=== PATIENT | female | born 1985 | race Caucasian/White ===

== ENCOUNTER 2020-07-03 02:34 | Outpatient (CLI) | payer OTHER, SELFPAY ==
[2020-07-03 19:16] LABS: SARS-CoV-2 RNA PCR Negative
== END 2020-07-03 02:35 | disposition home or self-care (01) ==
LOC: ANHCOVIDDT 02:35
PROVIDERS: Visit Provider Surgery Plastic and Reconstructive Surgery
DX: Z01.812 Encounter for preprocedural laboratory examination (principal); Z20.828 Contact with and (suspected) exposure to other viral communicable diseases; N64.82 Hypoplasia of breast
CPT/HCPCS: 87635; C9803; U0003

== ENCOUNTER 2020-07-06 05:53 | Day surgery (SDC) | payer OTHER, SELFPAY ==
[2020-06-25 11:04] VITALS: BMI 24.1
[2020-07-06 06:04] VITALS: BMI 25.2
[2020-07-06 06:32] VITALS: BP 100/65; PULSE 64; RESP 20; TEMP 37; O2SAT 100
--- NOTE | 2020-07-06 06:46 | WPDANESEPPF ---
Anes - Initial Pre Proc Eval Procedure: Operation Date: 07/06/20 07:30 Proposed Procedures p Bilateral Breast Augmentation Mammoplasty - Bartolo Salcedo MD Date/Time: 07/06/20 06:46 Surgeon: Bartolo Salcedo MD Pre Op Diagnosis: Micromastia Patient Data Age: 35 Gender: F Height: 5 ft 5 in Weight: 68.8 kg Last Vital Signs Temp 37.0 C 07/06/20 06:32 Pulse 64 07/06/20 06:32 Resp 20 07/06/20 06:32 BP 100/65 07/06/20 06:32 Pulse Ox 100 07/06/20 06:32 Allergies Allergy/AdvReac Type Severity Reaction Status Date / Time No Known Allergies Allergy Verified 07/06/20 06:02 Home Medications Medication Instructions Recorded Confirmed Type cabergoline 0.5 mg tablet 0.5 mg PO 2XW 05/24/20 06/25/20 History norgestimate-ethinyl estradiol 1 tablet PO DAILY 05/24/20 06/25/20 History 0.18 mg/0.215mg/0.25mg-35 mcg(28)tablet docusate sodium 100 mg capsule 100 mg PO DAILY #14 cap 06/18/20 06/25/20 Rx ondansetron HCl 4 mg tablet 4 mg PO Q8H #28 tablet 06/18/20 06/25/20 Rx carisoprodol 350 mg tablet 350 mg PO TID PRN #21 tablet 06/19/20 06/25/20 Rx oxycodone-acetaminophen 5 mg-325 1 tablet PO Q6H PRN #15 tablet 06/19/20 06/25/20 Rx mg tablet Patient hx anesthesia problems: none Family hx anesthesia problems: none PMFSH Surgical History Surgical History History of cholecystectomy Family History Family History Grandparent Carcinoma of colon Other Cerebrovascular accident Social History Social History Smoking status: Never smoker Second hand tobacco smoke exposure: No Alcohol intake: current Substance use: never Living arrangements: with family Gender identity (if verbalized by the patient): Female Spiritual care concerns: No Anes - Eval Final PreProcedure Day of Procedure 07/06/20 06:46 Patient weight: normal Heart: regular rate and rhythm Lungs: clear to auscultation Airway: Mallampati scale Neurological: alert and oriented Last oral intake: >/= 8 hours ASA classification: II Emergent: no Anesthetic plan: proceed Anesthesia type and monitoring: general LMA and standard monitoring Informed Consent: The patient's anesthetic plan and its attendant risks and benefits were discussed with the patient/family/POA. Questions were solicited and answers provided to the satisfaction of the patient/family/POA.
[2020-07-06] MEDS: LACTATED RINGERS 1,000 ML 30 ML IV CONT ×2 (06:57→08:10)
[2020-07-06] MEDS: SCOPOLAMINE 1.5 MG PATCH TRANSDERM (06:58)
--- NOTE | 2020-07-06 07:04 | WPDHPUPDATE1 ---
History and Physical Update Update Date/Time: 07/06/20 07:04 History and Physical has been reviewed, including an updated exam of the patient. There are NO changes in the patient's condition. Risks, benefits, and alternatives have been discussed and questions answered. Patient agrees to proceed with procedure.
--- NOTE | 2020-07-06 07:05 | PM.PROC ---
Procedure Note - Detailed Date of procedure: 07/06/20 Pre-op diagnosis: Micromastia Post-op diagnosis: same Procedure performed: Bilateral augmentation mammaplasty Description of procedure: She is here today for bilateral breast augmentation. Previously and again today the risks, benefits, alternatives were discussed in extensive detail. I wanted her to be very realistic about the risks involved as well as expectations. We discussed aftercare and what to monitor for. Made sure answered all of her questions to her satisfaction today and consent was obtained. Marked in the preoperative holding area with their verification. The patient was taken to the operating room placed supine on the operating table. Anesthesia was provided by anesthesiology. A surgical time-out was taken. We cleansed the skin and 1% lidocaine and 0.25% Marcaine with epinephrine was used anesthetize as a field block. She was prepped and draped in a standard sterile fashion. Tegaderm nipple Higuera were placed. A 15 blade used to make an incision along the inframammary fold. Dissection was continued at 45 degree angle until the chest wall as identified. I elevated superficial to pec in a dual plane 3 fashion. I incised the pectoralis major along its inferior border and completely released the inferior border leaving the medial border intact. I created a subpectoral pocket in the appropriate dimensions based on our preoperative planning for the implant. I then copiously irrigated with saline solution and verified a strict hemostasis. Next the use a triple antibiotic and Betadine containing solution to irrigate the pocket. I washed my gloves with the triple antibiotic and Betadine solution. We washed the implant immediately upon opening it with this solution and only opened it when we needed it. I used implant funnel and no-touch technique. The implant was introduced into the pocket using the funnel. Having verified positioning of the implant this was closed using 2-0 Vicryl followed by 3-0 Monocryl in a running subcuticular 4-0 Monocryl followed by tissue glue. Fluffs, Brannon wrap, and surgical bra were placed. Patient was awoke and taken to PACU without difficulty. All instrument sponge counts were correct at the end of the case. Anesthesia: GLMA Surgeon: Bartolo Salcedo MD Estimated blood loss (mL): 10 Drains: No Packing: No Pathology: none sent Complications: No immediate complications Condition: stable Disposition: PACU Findings: Bilateral Natlawrencee Insira SoftTouch 485cc Dual Plane 3 Right REF SSF-485 SN [id number] Left REF SSF-485 SN [id number]
[2020-07-06] MEDS: ceFAZolin SODIUM 2 GM/20 ML SW SYRINGE IV PUSH (07:09)
[2020-07-06] MEDS: LIDO 1%/EPINEPHRINE 1:100,000 20 ML VIAL INFILTRATE (07:32)
[2020-07-06 08:11] VITALS: BP 108/69; PULSE 111; RESP 18; TEMP 36.5; O2SAT 100
[2020-07-06 08:25] VITALS: BP 112/75; PULSE 100; RESP 22; O2SAT 100
[2020-07-06 08:40] VITALS: BP 111/75; PULSE 94; RESP 20; O2SAT 99
[2020-07-06] MEDS: MEPERIDINE HCL INJ (*CRX) 100 MG/ML AMPUL 25 MG IV PUSH (08:42)
--- NOTE | 2020-07-06 08:50 | WPDANESPN ---
Anes - Prog Note Post-Op Date/Time: 07/06/20 08:50 Vital Signs: Last Vital Signs Temp 36.5 C 07/06/20 08:11 Pulse 94 07/06/20 08:40 Resp 20 07/06/20 08:40 BP 111/75 07/06/20 08:40 Pulse Ox 99 07/06/20 08:40 Pain Score (VAS): 10/10 Patient Feedback: Patient has minimal pain described as soreness, alert and verbally communicates well, denies nausea, tolerating PO intake, VSS. Patient satisfied with anesthetic care.she meet criteria for discharge.
[2020-07-06 08:52] VITALS: BP 96/67; PULSE 100; RESP 18; TEMP 36.8; O2SAT 99
[2020-07-06 09:04] VITALS: BP 90/63; PULSE 91; RESP 14; O2SAT 100
== END 2020-07-06 09:30 | disposition home or self-care (01) ==
PROVIDERS: Visit Provider Surgery Plastic and Reconstructive Surgery
PROC: (CPT 19325; principal; 2020-07-06 07:30)
DX: N64.82 Hypoplasia of breast (principal)
CPT/HCPCS: 19325